=== PATIENT | female | born 1945 | race African-American/Black ===

== ENCOUNTER 2019-11-02 09:25 | Emergency (ER) | payer MEDICARE, OTHER ==
[~2019-11-02] VITALS: Ht 167.6 cm; Wt 74.8 kg
[~2019-11-02 09:25] MED LIST: ADVAIR; ANTIVERT25 MG ORAL; ONDANSETRON ODT4 MG ORAL; SINGULAIR; XOPENEX; ZYRTEC10 MG ORAL
--- NOTE | 2019-11-02 09:28 | NUR ---
ED Nurse Note: pt brought in by ambulance from home due to SOB and coughing x2 days. pt aao x4 and ambulatory but weak at this time. SOB and labored breathing noted. pt is on 4L/min via NC and saturating 98%. calm but anxious due to severe SOB. skin clean and intact. vital signs stable but tachycardia to 144/min and ERMD made aware. pt is in gown and on cadiac monitor.
[2019-11-02] MEDS ORDERED: ALBUTEROL2.5 MG/3 M INH (09:29)
--- NOTE | 2019-11-02 09:31 | Emergency Room Report ---
History of Present Illness General Chief Complaint: Dyspnea/Respdistress Source: Patient, Medical Record, EMS Present Illness HPI Disclaimer: Please note that this report is being documented using DRAGON technology. This can lead to erroneous entry secondary to incorrect interpretation by the dictating instrument. HPI: 74-year-old female history of hypertension and COPD presents for evaluation of shortness of breath. She has had a dry nonproductive cough for 2 days worsening in intensity. Denies fever, chills, myalgia, nasal congestion, postnasal drip. She has not been using her albuterol inhaler daily with no significant improvement in her symptoms. She was found hypoxic by EMS saturating in the upper 70s improving to 91% on 4 L nasal cannula. She feels better with the oxygen on. Denies any swelling of lower extremity, chest pain, palpitations, nausea, vomiting, diarrhea. No recent travel. No exposure to sick contacts. PMH: COPD PSH: Reviewed in chart Allergies: None reported Social Hx: Denies drug or alcohol abuse Allergies: Coded Allergies: No Known Allergies (Unverified , 07/02/13) COVID-19 Screening Contact w/high risk pt: No Recent Travel to affected area: No Experienced COVID-19 symptoms?: No Nursing Documentation-PMH Past Medical History: No History, Except For Hx Asthma: No - SEASONAL ALLERGY Hx COPD: Yes Review of Systems All Other Systems: negative except mentioned in HPI Physical Exam General: Awake and alert HEENT: NC/AT. EOMI. Cardiovascular: Tachycardic. S1 and S2 normal. No murmur appreciated Resp: Normal work of breathing. Dry cough. No wheezing or crackles Abdomen: Abdomen is soft, nondistended. Nontender Skin: Intact. No abrasions, laceration or rash over the exposed skin MSK: Normal tone and bulk. Moving all extremities. No obvious deformity. Neuro: Awake and alert. Mentating appropriately. Procedures Critical Care Time Critical Care Time Total critical care time: Approximately 45 minutes Due to a high probability of clinically significant, life threatening deterioration, the patient required the highest level of preparedness to intervene emergently and I personally spent this critical care time directly and personally managing the patient. This critical care time included obtaining a history, examining the patient, pulse oximetry, ordering and reviewing studies , ordering treatments, evaluating response to treatment and updating management plan as needed, frequent reassessment and discussion with other providers as well as arranging for ultimate disposition. This critical to care time was performed to assess and manage the high probability of life-threatening deterioration that could result in multiorgan failure. This critical care time is separate from the separately billable procedures and treating other patients. Medical Decision Making Diagnostic Impression: Primary Impression: UTI (urinary tract infection) Additional Impressions: Sepsis Respiratory distress DELANEY (acute kidney injury) Dehydration ER Course 74-year-old female presents for evaluation of 2 days worsening cough and shortness of breath. Found hypoxic by EMS as well as tachycardic. Differential includes was not limited to viral syndrome, influenza, novel coronavirus, pneumonia, bronchitis, COPD, emphysema, asthma exacerbation to name a few. Start a broad medical like an infectious work-up. Patient will be continued on oxygen. Will require admission. Laboratory Tests Test 11/02/19 09:27 11/02/19 09:32 11/02/19 09:47 11/02/19 11:30 Arterial Blood pH 7.414 (7.350-7.450) Arterial Blood Partial Pressure CO2 35.7 mmHg (35.0-45.0) Arterial Blood Partial Pressure O2 103.6 mmHg (75.0-100.0) H Arterial Blood HCO3 22.3 mmol/L (22.0-26.0) Arterial Blood Oxygen Saturation 97.3 % (95-100) Arterial Blood Base Excess -1.6 (-2-2) Brendan Test Positive White Blood Count 12.3 K/UL (4.8-10.8) H Red Blood Count 4.87 M/UL (4.20-5.40) Hemoglobin 15.8 G/DL (12.0-16.0) Hematocrit 45.0 % (37.0-47.0) Mean Corpuscular Volume 92 FL (80-99) Mean Corpuscular Hemoglobin 32.4 PG (27.0-31.0) H Mean Corpuscular Hemoglobin Concent 35.1 G/DL (32.0-36.0) Red Cell Distribution Width 10.5 % (11.6-14.8) L Platelet Count 155 K/UL (150-450) Mean Platelet Volume 7.7 FL (6.5-10.1) Neutrophils (%) (Auto) 77.0 % (45.0-75.0) H Lymphocytes (%) (Auto) 6.5 % (20.0-45.0) L Monocytes (%) (Auto) 14.8 % (1.0-10.0) H Eosinophils (%) (Auto) 0.1 % (0.0-3.0) Basophils (%) (Auto) 1.6 % (0.0-2.0) Sodium Level 133 MMOL/L (136-145) L Potassium Level 4.2 MMOL/L (3.5-5.1) Chloride Level 95 MMOL/L (98-107) L Carbon Dioxide Level 22 MMOL/L (21-32) Anion Gap 16 mmol/L (5-15) H Blood Urea Nitrogen 38 mg/dL (7-18) H Creatinine 1.4 MG/DL (0.55-1.30) H Estimated Glomerular Filtration Rate 44.7 mL/min (>60) Glucose Level 139 MG/DL (74-106) H Lactic Acid Level 2.20 mmol/L (0.4-2.0) H 2.20 mmol/L (0.66-2.22) Calcium Level 10.0 MG/DL (8.5-10.1) Total Bilirubin 0.8 MG/DL (0.2-1.0) Aspartate Amino Transferase (AST) 22 U/L (15-37) Alanine Aminotransferase (ALT) 29 U/L (12-78) Alkaline Phosphatase 82 U/L (46-116) Total Creatine Kinase 36 U/L (26-308) Creatine Kinase MB 0.8 NG/ML (0.0-3.6) Creatine Kinase MB Relative Index 2.2 Troponin I 0.068 ng/mL (0.000-0.056) Pro-B-Type Natriuretic Peptide 378 pg/mL (0-125) H Total Protein 7.9 G/DL (6.4-8.2) Albumin 2.7 G/DL (3.4-5.0) L Globulin 5.2 g/dL Albumin/Globulin Ratio 0.5 (1.0-2.7) L Urine Color Yellow Urine Appearance Cloudy Urine pH 5 (4.5-8.0) Urine Specific Turrell 1.020 (1.005-1.035) Urine Protein 3+ (NEGATIVE) H Urine Glucose (UA) Negative (NEGATIVE) Urine Ketones 1+ (NEGATIVE) H Urine Blood 2+ (NEGATIVE) H Urine Nitrite Negative (NEGATIVE) Urine Bilirubin Negative (NEGATIVE) Urine Urobilinogen Normal MG/DL (0.0-1.0) Urine Leukocyte Esterase 3+ (NEGATIVE) H Urine RBC 2-4 /HPF (0 - 2) H Urine WBC Tntc /HPF (0 - 2) H Urine Squamous Epithelial Cells Moderate /LPF (NONE/OCC) H Urine Bacteria Moderate /HPF (NONE) H Microbiology Date/Time Source Procedure Growth Status 11/02/19 09:47 Nasal Nares - Final Complete 11/02/19 09:47 Nasal Nares - Final Complete EKG Diagnostic Results EKG Time: :31 Rate: tachycardiac Other Impression Sinus tachycardia with a normal axis and normal intervals Rhythm Strip Diag. Results Rhythm Strip Time: :31 EP Interpretation: yes Rate: 130s Rhythm: NSR, no PVC's, no ectopy Chest X-Ray Diagnostic Results Chest X-Ray Diagnostic Results : Chest X-Ray Ordered: Yes # of Views/Limited/Complete: 1 View Indication: Shortness of Breath Interpretation: no consolidation, no effusion, other - Questionable pneumothorax Impression: Other - Abnormal diaphragmatic borders, possible pneumothorax per radiology Electronically Signed by: Electronically signed by Dr. Ayan Esquivel CT/MRI/US Diagnostic Results CT/MRI/US Diagnostic Results : Impression Final Report EXAM: CT Chest Without Intravenous Contrast CLINICAL HISTORY: Shortness of breath TECHNIQUE: Axial computed tomography images of the chest without intravenous contrast. Sagittal and coronal reformatted images were created and reviewed. CTDI is 4.20 mGy and DLP is 164.20 mGy-cm. One or more of the following dose reduction techniques were used: automated exposure control, adjustment of the mA and/or kV according to patient size, use of iterative reconstruction technique. COMPARISON: Chest x-ray dated 11/02/19 FINDINGS: Lungs: Mild linear atelectasis in the lingula and bilateral lower lobes. Scattered thin-walled pulmonary cysts versus emphysema. The lungs are otherwise clear. Pleural space: Unremarkable. No pneumothorax. No significant effusion. Heart: Coronary artery calcifications. No significant pericardial effusion. Bones/joints: Unremarkable. No acute fracture. No dislocation. Soft tissues: Unremarkable. Vasculature: Atherosclerotic calcifications are noted within the aortic arch. No thoracic aortic aneurysm or dissection. Lymph nodes: Unremarkable. No enlarged lymph nodes. IMPRESSION: 1. No pneumothorax. 2. Mild linear atelectasis in the lingula and bilateral lower lobes. 3. Scattered thin-walled pulmonary cysts versus emphysema. 4. Coronary artery calcifications. Radiologist: Thaddeus Owens MD Electronically Signed: 11/02/19 12:05 Study ready at 11:50 and initial results transmitted at 12:05 Reevaluation Time: 13:24 Reevaluation Impression Chest x-ray was concerning for possible pneumothorax however CT does not find evidence of pneumothorax. Multiple emphysematous changes but no obvious infiltrate. There is some atelectasis noted. Patient improving. Heart rate approximately 105, saturating 100% on 2 L nasal cannula which she is keeping on for comfort. Oxygen saturations without oxygen approximately 94%. Received steroids and MDI albuterol. Flu swabs negative. Labs concerning for urinary tract infection, elevated lactate and slight elevation in troponin. May be urosepsis along with mild COPD exacerbation given her history though her blood gas is mostly within normal limits. We will keep on respiratory precautions given her symptoms. Unable to perform COVID-19 testing at our facility at this time. She will require admission. Will transfer to [facility]. Dr. Manzano is the accepting physician. Disposition: SHORT-TERM HOSP Condition: Serious Ayan Esquivel MD Nov 02, 2019 09:31
--- NOTE | 2019-11-02 09:38 | NUR ---
ED Nurse Note: blood and flu swab sent to lab. x-ray at bedside.
[2019-11-02 09:41] VITALS: BP 138/72
[2019-11-02] MEDS ORDERED: Albuterol 90mcg Inhaler 8gm INH PRN (09:45)
[2019-11-02] MEDS ORDERED: Sodium Chloride 2,200 ML IVLG ONE (09:45)
[2019-11-02] MEDS ORDERED: Solu-MEDROL 125mg Inj IVP ONE (09:45)
--- NOTE | 2019-11-02 10:05 | Diagnostic Imaging Report ---
EXAM: XR Chest, 1 View CLINICAL HISTORY: Shortness of breath TECHNIQUE: Frontal view of the chest. COMPARISON: Chest x-ray 07/02/13 FINDINGS: Lungs: Unremarkable. The lungs appear clear. No focal consolidation. Pleural space: Diaphragmatic contour appears too sharp, with subtle adjacent lucency.. The costophrenic angles are sharp. Heart: Unremarkable. No cardiomegaly. Mediastinum: Unremarkable. Bones/joints: Unremarkable. Vasculature: Atherosclerotic calcifications are noted within the aortic arch. Tubes, lines and devices: Telemetry leads overlie the thorax. Upper abdomen: IMPRESSION: 1. Diaphragmatic contour appears too sharp, with subtle adjacent lucency. This is nonspecific, but cannot exclude a subtle anterior or posterior pneumothorax. If there is continued clinical concern, lateral decubitus films may be considered to further evaluate this possibility. 2. The lungs appear clear.
[2019-11-02 10:06] LABS: BASOPHILS % (AUTO) 1.6 % (0.0-2.0); EOSINOPHILS % (AUTO) 0.1 % (0.0-3.0); HEMOGLOBIN 15.8 G/DL (12.0-16.0); LYMPHOCYTES % (AUTO) 6.5 % (20.0-45.0); MEAN CORPUSCULAR VOLUME 92 FL (80-99); MONOCYTES % (AUTO) 14.8 % (1.0-10.0); PLATELET COUNT 155 K/UL (150-450); RED BLOOD COUNT 4.87 M/UL (4.20-5.40); RED CELL DISTRIBUTION WIDTH 10.5 % (11.6-14.8); WHITE BLOOD COUNT 12.3 K/UL (4.8-10.8)
[2019-11-02 10:26] LABS: ANION GAP 16 mmol/L (5-15); BLOOD UREA NITROGEN 38 mg/dL (7-18); CARBON DIOXIDE 22 MMOL/L (21-32); CHLORIDE 95 MMOL/L (98-107); CREATININE 1.4 MG/DL (0.55-1.30); POTASSIUM 4.2 MMOL/L (3.5-5.1); SODIUM 133 MMOL/L (136-145)
[2019-11-02 10:37] LABS: ALANINE AMINOTRANSFERASE 29 U/L (12-78); ALBUMIN 2.7 G/DL (3.4-5.0); ALBUMIN/GLOBULIN RATIO 0.5 (1.0-2.7); ALKALINE PHOSPHATASE 82 U/L (46-116); ASPARTATE AMINO TRANSFERASE 22 U/L (15-37); BILIRUBIN,TOTAL 0.8 MG/DL (0.2-1.0); CKMB 0.8 NG/ML (0.0-3.6); CREATINE KINASE 36 U/L (26-308)
--- NOTE | 2019-11-02 11:34 | NUR ---
ED Nurse Note: pt taken to CT in stable condition.
--- NOTE | 2019-11-02 11:49 | NUR ---
ED Nurse Note: Pt came back from CT in stable condition
[2019-11-02 11:50] LABS: APPEARANCE,URINE CLOUDY; BILIRUBIN, URINE NEGATIVE (NEGATIVE); GLUCOSE, URINE (UA) NEGATIVE (NEGATIVE); KETONES,URINE 1+ (NEGATIVE); LEUKOCYTE ESTERASE ,URINE 3+ (NEGATIVE); NITRITE,URINE NEGATIVE (NEGATIVE); PH,URINE 5 (4.5-8.0); PROTEIN,URINE 3+ (NEGATIVE); UROBILINOGEN,URINE NORMAL MG/DL (0.0-1.0)
[2019-11-02 11:58] LABS: COLOR,URINE YELLOW
--- NOTE | 2019-11-02 12:05 | Diagnostic Imaging Report ---
EXAM: CT Chest Without Intravenous Contrast CLINICAL HISTORY: Shortness of breath TECHNIQUE: Axial computed tomography images of the chest without intravenous contrast. Sagittal and coronal reformatted images were created and reviewed. CTDI is 4.20 mGy and DLP is 164.20 mGy-cm. One or more of the following dose reduction techniques were used: automated exposure control, adjustment of the mA and/or kV according to patient size, use of iterative reconstruction technique. COMPARISON: Chest x-ray dated 11/02/19 FINDINGS: Lungs: Mild linear atelectasis in the lingula and bilateral lower lobes. Scattered thin-walled pulmonary cysts versus emphysema. The lungs are otherwise clear. Pleural space: Unremarkable. No pneumothorax. No significant effusion. Heart: Coronary artery calcifications. No significant pericardial effusion. Bones/joints: Unremarkable. No acute fracture. No dislocation. Soft tissues: Unremarkable. Vasculature: Atherosclerotic calcifications are noted within the aortic arch. No thoracic aortic aneurysm or dissection. Lymph nodes: Unremarkable. No enlarged lymph nodes. IMPRESSION: 1. No pneumothorax. 2. Mild linear atelectasis in the lingula and bilateral lower lobes. 3. Scattered thin-walled pulmonary cysts versus emphysema. 4. Coronary artery calcifications.
[2019-11-02] MEDS ORDERED: cefTRIAXone 1 GM in NS 55 ML IVPB ONE (12:15)
--- NOTE | 2019-11-02 14:00 | NUR ---
ED Nurse Note: report given to DEBORAH Plata in [facility].
--- NOTE | 2019-11-02 14:22 | NUR ---
ED Nurse Note: transporation arrived. report given to EMS.
[2019-11-02 14:30] VITALS: BP 109/87
--- NOTE | 2019-11-02 14:31 | NUR ---
ED Nurse Note: pt left unit with 3 EMS in stable condition.
== END 2019-11-02 14:30 | disposition short-term general hospital (02) ==
LOC: EDBD 09:25 → EDUNIT# 09:25 → EMR 09:46 → EDBEDREQSVC 10:42 → EDBEDREQ 10:43 → EMR 14:30
DX: A41.9 Sepsis, unspecified organism (principal); N39.0 Urinary tract infection, site not specified; R06.03 Acute respiratory distress; N17.9 Acute kidney failure, unspecified; E86.0 Dehydration; J44.9 Chronic obstructive pulmonary disease, unspecified; R09.02 Hypoxemia; R00.0 Tachycardia, unspecified; J98.11 Atelectasis
CPT/HCPCS: 36415; 36600; 71045; 71250; 80053; 81003; 82550; 82553; 82803; 83605; 83880; 84484; 85025; 86710; 87040; 87086; 87181; 94640; 96361; 96365; 96375; 99291; J0696; J2930; J7030